=== PATIENT | female | born 1955 | race Two or more races ===

== ENCOUNTER 2023-06-16 17:28 | Inpatient (IN) | payer MEDICAID, OTHER ==
[~2023-06-16] VITALS: Ht 152.4 cm; Wt 96.7 kg
[2023-06-16 21:58] LABS: Basophils # (auto) 0 10 ^3/uL (0-0.2); Basophils % (auto) 0.3 % (0.0-2.0); Eosinophils # (auto) 0 10 ^3/uL (0-0.8); Hematocrit 26.9 % (36.0-46.0); Hemoglobin 8.4 g/dL (12.2-16.2); Lymphocytes # (auto) 1.2 10 ^3/uL (0.4-5.4); Lymphocytes % (auto) 20.2 % (10.0-50.0); Mean Corpuscular Hemoglobin 34.6 pg (28.0-32.0); Mean Corpuscular Hgb Conc. 31.3 g/dL (32.0-36.0); Mean Corpuscular Volume 110.6 fL (80.0-100.0); Monocytes # (auto) 0.9 10 ^3/uL (0-1.3); Monocytes % (auto) 15.8 % (0.0-12.0); Neutrophils # (auto) 3.8 10 ^3/uL (1.6-8.6); Neutrophils % (auto) 63.7 % (37.0-80.0); Nucleated Red Blood Cells % 0.3 %; Red Blood Cells 2.43 10^6/uL (4.0-5.20); White Blood Cell 5.9 10^3/uL (4.4-10.8)
[2023-06-16 21:59] LABS: Albumin 3.4 g/dL (3.2-4.8); Alkaline Phosphatase 74 U/L (46-116); Anion Gap 6.5 (5-15); Aspartate Aminotransferase 20 U/L (13-40); BUN/Creatinine Ratio 21.8 (10.0-20.0); Bilirubin, Total 1.6 mg/dL (0.2-1.0); Blood Urea Nitrogen 12 mg/dL (9-23); Calcium 8.7 mg/dL (8.7-10.4); Carbon Dioxide 25.5 mmol/L (20-30); Chloride 107 mmol/L (98-107); Glucose 137 mg/dL (74-106); Lipase 37 U/L (12-53); Potassium 3.9 mmol/L (3.5-5.1); Sodium 139 mmol/L (136-145); Total Protein 5.6 g/dL (5.7-8.2)
[2023-06-16 22:01] LABS: Alanine Aminotransferase < 9 U/L (7-40)
[2023-06-16 22:23] LABS: INR 0.99 (0.9-1.15); Partial Thromboplastin Time 27.9 SEC (24.5-34.5); Prothrombin Time 10.4 sec (9.3-11.8)
[2023-06-16 22:33] LABS: Anisocytosis Moderate; Platelet Estimate Decreased
[2023-06-16 22:34] LABS: Macrocytosis Moderate
[2023-06-17 04:30] VITALS: PULSE 97; RESP 20; O2SAT 94
[2023-06-17 04:40] LABS: Urine Amorphous Crystal FEW /hpf (None Seen); Urine Bacteria FEW /hpf (None Seen); Urine Blood TRACE /uL (Negative); Urine Clarity HAZY (Clear); Urine Color Yellow (Yellow); Urine Mucus FEW (None Seen); Urine Protein, UAD TRACE (Negative); Urine Specific Gravity 1.027 (1.001-1.035); Urine WBC 25 /hpf (0 - 5); Urine pH 5.5 (5.0-8.0)
[2023-06-17] MEDS ORDERED: FUROSEMIDE 20 MG/2 ML VIAL IV ONE (05:30)
[2023-06-17] MEDS ORDERED: LORazepam 2MG/ML-1ML VIAL IV ONE (05:30)
[2023-06-17] MEDS ORDERED: ACETAMINOPHEN 325 MG TAB PO PRN (06:00)
[2023-06-17] MEDS ORDERED: SODIUM CHLORIDE 0.9% 1,000 ML IV SCH (06:00)
[2023-06-17] MEDS ORDERED: ONDANSETRON HCL 4 MG/2 ML VIAL ONE (06:29)
[2023-06-17] MEDS: ONDANSETRON HCL 4 MG/2 ML VIAL IV PRN (06:29)
[2023-06-17 07:00] LABS: Eosinophils # (auto) 0 10 ^3/uL (0-0.8); Hemoglobin 8.3 g/dL (12.2-16.2); Lymphocytes # (auto) 1.3 10 ^3/uL (0.4-5.4); Mean Corpuscular Hemoglobin 34.3 pg (28.0-32.0); Mean Corpuscular Volume 110.4 fL (80.0-100.0); Monocytes # (auto) 1.1 10 ^3/uL (0-1.3); Neutrophils # (auto) 4.5 10 ^3/uL (1.6-8.6); Red Cell Distribution Width 18.5 % (11.8-14.3); White Blood Cell 6.9 10^3/uL (4.4-10.8)
[2023-06-17] MEDS ORDERED: MORPHINE SULFATE INJ 2 MG/ml SYRG IV PRN (07:00)
[2023-06-17] MEDS ORDERED: NITROGLYCERIN 0.4 MG SL TAB SL PRN (07:00)
[2023-06-17 07:03] LABS: Basophils # (auto) 0.1 10 ^3/uL (0-0.2); Basophils % (auto) 0.7 % (0.0-2.0); Hematocrit 26.7 % (36.0-46.0); Lymphocytes % (auto) 18.7 % (10.0-50.0); Monocytes % (auto) 15.8 % (0.0-12.0); Neutrophils % (auto) 64.8 % (37.0-80.0); Nucleated Red Blood Cells % 0.1 %; Red Blood Cells 2.42 10^6/uL (4.0-5.20)
[2023-06-17 07:06] LABS: Albumin 3.2 g/dL (3.2-4.8); Alkaline Phosphatase 72 U/L (46-116); Anion Gap 5.7 (5-15); Aspartate Aminotransferase 23 U/L (13-40); BUN/Creatinine Ratio 20.3 (10.0-20.0); Bilirubin, Total 1.4 mg/dL (0.2-1.0); Blood Urea Nitrogen 13 mg/dL (9-23); Calcium 8.3 mg/dL (8.7-10.4); Carbon Dioxide 24.3 mmol/L (20-30); Chloride 108 mmol/L (98-107); Glucose 149 mg/dL (74-106); Potassium 3.8 mmol/L (3.5-5.1); Sodium 138 mmol/L (136-145); Total Protein 5.4 g/dL (5.7-8.2)
[2023-06-17 07:07] LABS: Alanine Aminotransferase < 9 U/L (7-40)
[2023-06-17] MEDS: LEVOTHYROXINE SODIUM 25 MCG TAB PO SCH (07:32)
[2023-06-17 08:00] VITALS: PULSE 99; RESP 25; O2SAT 99
[2023-06-17] MEDS ORDERED: FUROSEMIDE 20 MG/2 ML VIAL IV SCH (10:00)
[2023-06-17 10:45] VITALS: BP 105/54; PULSE 94; RESP 18; TEMP 98.2; O2SAT 99
[2023-06-17] MEDS ORDERED: FUROSEMIDE 100 MG/10ML VIAL IV ONE (10:45)
[2023-06-17 13:19] LABS: Base Excess 1.8 mmol/L (-2.0-2.0)
[2023-06-17] MEDS: LORazepam 2MG/ML-1ML VIAL IV PRN (17:08)
[2023-06-17] MEDS: FUROSEMIDE 100 MG/10ML VIAL IV SCH (18:23)
[2023-06-17 19:30] VITALS: PULSE 102; RESP 20; O2SAT 98
[2023-06-17 20:00] VITALS: PULSE 105
[2023-06-17 22:39] VITALS: BP 122/54; PULSE 104; RESP 20; TEMP 98.2; O2SAT 100
[2023-06-18] VITALS (8 sets, daily range): BP systolic 105–132; BP diastolic 37–66; PULSE 54–105; RESP 18–20; TEMP 93.7–98.6; O2SAT 20–99
[2023-06-18] MEDS: FUROSEMIDE 100 MG/10ML VIAL IV SCH ×2 (05:25→18:47)
[2023-06-18 05:28] LABS: Basophils # (auto) 0 10 ^3/uL (0-0.2); Eosinophils # (auto) 0 10 ^3/uL (0-0.8); Lymphocytes # (auto) 1.4 10 ^3/uL (0.4-5.4); Mean Corpuscular Volume 109.4 fL (80.0-100.0)
[2023-06-18 05:41] LABS: Basophils % (auto) 0.2 % (0.0-2.0); Hematocrit 25.7 % (36.0-46.0); Lymphocytes % (auto) 20.8 % (10.0-50.0); Mean Corpuscular Hemoglobin 34.3 pg (28.0-32.0); Mean Corpuscular Hgb Conc. 31.3 g/dL (32.0-36.0); Monocytes # (auto) 1.1 10 ^3/uL (0-1.3); Monocytes % (auto) 15.4 % (0.0-12.0); Neutrophils # (auto) 4.4 10 ^3/uL (1.6-8.6); Neutrophils % (auto) 63.6 % (37.0-80.0); Red Blood Cells 2.35 10^6/uL (4.0-5.20); Red Cell Distribution Width 18.7 % (11.8-14.3); White Blood Cell 6.9 10^3/uL (4.4-10.8)
[2023-06-18 05:46] LABS: Alkaline Phosphatase 70 U/L (46-116); Anion Gap 7.8 (5-15); Aspartate Aminotransferase 21 U/L (13-40); BUN/Creatinine Ratio 15.9 (10.0-20.0); Blood Urea Nitrogen 13 mg/dL (9-23); Calcium 8.1 mg/dL (8.7-10.4); Carbon Dioxide 28.2 mmol/L (20-30); Chloride 103 mmol/L (98-107); Glucose 176 mg/dL (74-106); Sodium 139 mmol/L (136-145)
[2023-06-18 05:47] LABS: Bilirubin, Total 1.4 mg/dL (0.2-1.0)
[2023-06-18] MEDS: LEVOTHYROXINE SODIUM 25 MCG TAB PO SCH (05:55)
[2023-06-18 06:10] LABS: Alanine Aminotransferase < 9 U/L (7-40)
[2023-06-18 06:12] LABS: Potassium 2.9 mmol/L (3.5-5.1)
[2023-06-18] MEDS ORDERED: POTASSIUM CHL 20 Meq TABLET PO ONE (06:15)
[2023-06-18] MEDS: cefTRIAXone 1GM/50ML D5W 50 ML IV SCH (08:48)
[2023-06-18] MEDS: metOLazone 5 MG TAB PO SCH (10:03)
[2023-06-19] VITALS (7 sets, daily range): BP systolic 89–112; BP diastolic 46–64; PULSE 89–96; RESP 17–21; TEMP 97.4–99; O2SAT 90–99
[2023-06-19] MEDS: FUROSEMIDE 100 MG/10ML VIAL IV SCH ×2 (05:17→17:55)
[2023-06-19] MEDS: LEVOTHYROXINE SODIUM 25 MCG TAB PO SCH (06:11)
[2023-06-19] MEDS: cefTRIAXone 1GM/50ML D5W 50 ML IV SCH (08:51)
[2023-06-19] MEDS: POTASSIUM CHL 20 Meq TABLET PO SCH (10:48)
[2023-06-19] MEDS: metOLazone 5 MG TAB PO SCH (11:05)
[2023-06-19 19:49] LABS: Chloride 99 mmol/L (98-107); Sodium 137 mmol/L (136-145)
[2023-06-19 19:50] LABS: Anion Gap 5.5 (5-15); Calcium 8.3 mg/dL (8.5-10.1); Carbon Dioxide 32.5 mmol/L (20-30)
[2023-06-19 19:55] LABS: BUN/Creatinine Ratio 17.6 (10.0-20.0); Blood Urea Nitrogen 15 mg/dL (9-23); Glucose 181 mg/dL (74-106)
[2023-06-19 20:02] LABS: Potassium 2.8 mmol/L (3.5-5.1)
[2023-06-19] MEDS ORDERED: POTASSIUM CHL 20 Meq TABLET PO ONE (21:30)
[2023-06-20] VITALS (8 sets, daily range): BP systolic 95–110; BP diastolic 44–57; PULSE 69–97; RESP 16–18; TEMP 97.7–98.3; O2SAT 94–99
[2023-06-20] MEDS: FUROSEMIDE 100 MG/10ML VIAL IV SCH ×2 (06:00→19:10)
[2023-06-20 06:15] LABS: Anion Gap 7.2 (5-15); Carbon Dioxide 30.8 mmol/L (20-30); Chloride 98 mmol/L (98-107); Potassium 3.2 mmol/L (3.5-5.1); Sodium 136 mmol/L (136-145)
[2023-06-20 06:16] LABS: Calcium 8.2 mg/dL (8.7-10.4)
[2023-06-20] MEDS: LEVOTHYROXINE SODIUM 25 MCG TAB PO SCH (06:18)
[2023-06-20 06:21] LABS: BUN/Creatinine Ratio 17.8 (10.0-20.0); Blood Urea Nitrogen 16 mg/dL (9-23); Glucose 177 mg/dL (74-106)
[2023-06-20] MEDS: cefTRIAXone 1GM/50ML D5W 50 ML IV SCH (08:37)
[2023-06-20 09:14] LABS: Hepatitis B Surface Antigen Negative (Negative)
[2023-06-20 09:35] LABS: Hepatitis C Antibody Negative (Negative)
[2023-06-20] MEDS: POTASSIUM CHL 20 Meq TABLET PO SCH (10:07)
[2023-06-20] MEDS ORDERED: FUROSEMIDE 100 MG/10ML VIAL IV ONE (13:00)
[2023-06-20 15:19] LABS: Folate (Folic Acid) 8.92 ng/mL (>5.38)
[2023-06-21] VITALS (7 sets, daily range): BP systolic 81–108; BP diastolic 42–60; PULSE 91–105; RESP 16–22; TEMP 97.7–98.3; O2SAT 96–99
[2023-06-21] MEDS: FUROSEMIDE 100 MG/10ML VIAL IV SCH ×2 (05:42→17:57)
[2023-06-21] MEDS: LEVOTHYROXINE SODIUM 25 MCG TAB PO SCH (05:58)
[2023-06-21 06:17] LABS: Chloride 94 mmol/L (98-107); Sodium 135 mmol/L (136-145)
[2023-06-21 06:18] LABS: Calcium 8.4 mg/dL (8.5-10.1)
[2023-06-21 06:23] LABS: BUN/Creatinine Ratio 21.6 (10.0-20.0); Blood Urea Nitrogen 22 mg/dL (9-23); Glucose 188 mg/dL (74-106)
[2023-06-21 06:40] LABS: Potassium 2.7 mmol/L (3.5-5.1)
[2023-06-21 06:44] LABS: Red Cell Distribution Width 17.2 % (11.8-14.3); White Blood Cell 8.6 10^3/uL (4.4-10.8)
[2023-06-21 06:48] LABS: Hematocrit 25.4 % (36.0-46.0); Hemoglobin 8.4 g/dL (12.2-16.2); Mean Corpuscular Hemoglobin 34.7 pg (28.0-32.0); Red Blood Cells 2.42 10^6/uL (4.0-5.20)
[2023-06-21 06:55] LABS: Band Neutrophils % (manual) 0; Basophils % (manual) 0 (0.0-2.0); Blast Cells 0; Eosinophils % (manual) 0 (0-7); Metamyelocytes % 0; Myelocytes % 0; Promyelocytes % 0; Reactive Lymphocytes 0
[2023-06-21 06:56] LABS: Anion Gap 6.9 (5-15); Carbon Dioxide 34.1 mmol/L (20-30)
[2023-06-21] MEDS ORDERED: POTASSIUM CHL 20 Meq TABLET PO ONE (07:00)
[2023-06-21] MEDS ORDERED: POTASSIUM EFFERVESENT TAB 25 MEQ PO ONE ×2 (10:00→16:00)
[2023-06-21 10:55] LABS: Lymphocytes % (manual) 20 (10.0-50.0); Monocytes % (manual) 15 (0-12); Platelet Estimate Decreased
[2023-06-21] MEDS: cefTRIAXone 1GM/50ML D5W 50 ML IV SCH (11:02)
[2023-06-21] MEDS: POTASSIUM CHL 20 Meq TABLET PO SCH (11:03)
[2023-06-21] MEDS: HYDROcodone-ACET 5/325MG TAB PO PRN ×3 (11:03→23:32)
[2023-06-21 11:57] LABS: % Iron Saturation 21.9 % (15-50)
[2023-06-21 12:44] LABS: Ferritin 387.9 ng/mL (10-291)
[2023-06-21 12:54] LABS: Erythrocyte Sedimentation Rate 90 mm/hr (0-20)
[2023-06-21 13:09] LABS: Free T3 1.77 pg/mL (2.3-4.2); Free T4 (Free Thyroxine) 0.79 ng/dL (0.89-1.76)
[2023-06-21 14:54] LABS: Body Fluid Polymorphonuclear 16 % (0-25); Body Fluid Red Blood Cells 43 CUMM (0-2000); Body Fluid White Blood Cells 690 CUMM (0-200)
[2023-06-21] MEDS: LEVOTHYROXINE SODIUM 50 MCG TAB PO SCH (17:49)
[2023-06-21] MEDS: DOCUSATE SOD 100 MG CAP PO PRN (17:53)
[2023-06-21] MEDS: ONDANSETRON HCL 4 MG/2 ML VIAL IV PRN (18:33)
[2023-06-22] VITALS (7 sets, daily range): BP systolic 100–115; BP diastolic 49–59; PULSE 89–98; RESP 17–23; TEMP 97.5–98.4; O2SAT 95–99
[2023-06-22] MEDS: FUROSEMIDE 100 MG/10ML VIAL IV SCH ×2 (05:01→17:45)
[2023-06-22] MEDS: LEVOTHYROXINE SODIUM 50 MCG TAB PO SCH (06:03)
[2023-06-22 06:59] LABS: Red Cell Distribution Width 17.2 % (11.8-14.3); White Blood Cell 8.9 10^3/uL (4.4-10.8)
[2023-06-22 07:00] LABS: Hematocrit 25.1 % (36.0-46.0); Hemoglobin 8.2 g/dL (12.2-16.2); Mean Corpuscular Hemoglobin 34.5 pg (28.0-32.0); Mean Corpuscular Hgb Conc. 32.9 g/dL (32.0-36.0); Mean Corpuscular Volume 104.7 fL (80.0-100.0); Red Blood Cells 2.39 10^6/uL (4.0-5.20)
[2023-06-22] MEDS ORDERED: LEVOTHYROXINE SODIUM 50 MCG TAB PO SCH (07:00)
[2023-06-22 07:10] LABS: Chloride 93 mmol/L (98-107); Potassium 3.2 mmol/L (3.5-5.1); Sodium 133 mmol/L (136-145)
[2023-06-22 07:11] LABS: Anion Gap 3.9 (5-15); Carbon Dioxide 36.1 mmol/L (20-30)
[2023-06-22 07:12] LABS: Band Neutrophils % (manual) 0; Basophils % (manual) 0 (0.0-2.0); Blast Cells 0; Calcium 8.3 mg/dL (8.5-10.1); Eosinophils % (manual) 0 (0-7); Metamyelocytes % 0; Myelocytes % 0; Promyelocytes % 0; Reactive Lymphocytes 0
[2023-06-22 07:16] LABS: BUN/Creatinine Ratio 24.2 (10.0-20.0); Blood Urea Nitrogen 30 mg/dL (9-23); Glucose 210 mg/dL (74-106)
[2023-06-22 07:17] LABS: Magnesium 1.4 mg/dL (1.6-2.6)
[2023-06-22 07:55] LABS: Lymphocytes % (manual) 14 (10.0-50.0); Monocytes % (manual) 16 (0-12); Platelet Estimate Decreased
[2023-06-22 07:56] LABS: Hypochromia Slight; Macrocytosis Slight; Stomatocytes Moderate
[2023-06-22 08:07] LABS: Thyroxine (T4) 5.4 ug/dL (4.5-12.0)
[2023-06-22] MEDS ORDERED: MAGNESIUM SULFATE 1GM/100ML 100 ML IV ONE (08:15)
[2023-06-22] MEDS ORDERED: POTASSIUM EFFERVESENT TAB 25 MEQ PO ONE (08:15)
[2023-06-22] MEDS: HYDROcodone-ACET 5/325MG TAB PO PRN (08:34)
[2023-06-22] MEDS ORDERED: POTASSIUM CHL 20 Meq TABLET PO ONE (09:00)
[2023-06-22] MEDS: cefTRIAXone 1GM/50ML D5W 50 ML IV SCH (09:03)
[2023-06-22] MEDS: POTASSIUM CHL 20 Meq TABLET PO SCH (09:04)
[2023-06-22] MEDS: DOCUSATE SOD 100 MG CAP PO PRN (09:04)
[2023-06-22 09:07] LABS: Anti-Nuclear Antibody Direct Positive (Negative); Anti-dsDNA Antibody 1 IU/mL (0-9); RNP Antibody <0.2 AI (0.0-0.9); Sjogren's Anti-SS-A Antibody 2.7 AI (0.0-0.9); Sjogren's Anti-SS-B Antibody <0.2 AI (0.0-0.9); Smith Antibody <0.2 AI (0.0-0.9)
[2023-06-22 11:02] LABS: Albumin 2.9 g/dL (3.2-4.8); Alkaline Phosphatase 66 U/L (46-116); Aspartate Aminotransferase 15 U/L (13-40); Bilirubin, Direct 0.4 mg/dL (<0.3)
[2023-06-22 11:03] LABS: Bilirubin, Total 1.1 mg/dL (0.2-1.0)
[2023-06-22 11:07] LABS: Alanine Aminotransferase < 9 U/L (7-40)
[2023-06-22 12:07] LABS: CA 27.29 19.9 U/mL (0.0-38.6)
[2023-06-22 14:07] LABS: Protein, Body Fluid 2.9 g/dL (.)
[2023-06-22 14:07] LABS: Albumin 2.4 g/dL (2.9-4.4); Alpha-1-Globulin 0.3 g/dL (0.0-0.4); Alpha-2-Globulin 0.5 g/dL (0.4-1.0); Gamma Globulin 0.6 g/dL (0.4-1.8); Globulin Total 2.2 g/dL (2.2-3.9); Protein Total Serum 4.6 g/dL (6.0-8.5)
[2023-06-23] VITALS (7 sets, daily range): BP systolic 105–114; BP diastolic 48–60; PULSE 76–102; RESP 16–23; TEMP 97.7–98.5; O2SAT 97–100
[2023-06-23] MEDS: LORazepam 2MG/ML-1ML VIAL IV PRN ×2 (04:43→21:24)
[2023-06-23] MEDS: FUROSEMIDE 100 MG/10ML VIAL IV SCH ×2 (05:34→17:44)
[2023-06-23] MEDS: LEVOTHYROXINE SODIUM 50 MCG TAB PO SCH (06:26)
[2023-06-23 06:55] LABS: Basophils # (auto) 0 10 ^3/uL (0-0.2); Eosinophils # (auto) 0 10 ^3/uL (0-0.8); Nucleated Red Blood Cells % 0.1 %; White Blood Cell 10.4 10^3/uL (4.4-10.8)
[2023-06-23 07:23] LABS: Basophils % (auto) 0.4 % (0.0-2.0); Hematocrit 24.1 % (36.0-46.0); Lymphocytes # (auto) 1.9 10 ^3/uL (0.4-5.4); Lymphocytes % (auto) 18.6 % (10.0-50.0); Mean Corpuscular Hemoglobin 35.1 pg (28.0-32.0); Mean Corpuscular Hgb Conc. 33.4 g/dL (32.0-36.0); Monocytes # (auto) 1.6 10 ^3/uL (0-1.3); Monocytes % (auto) 15.7 % (0.0-12.0); Neutrophils # (auto) 6.8 10 ^3/uL (1.6-8.6); Neutrophils % (auto) 65.3 % (37.0-80.0); Red Blood Cells 2.29 10^6/uL (4.0-5.20); Red Cell Distribution Width 17.2 % (11.8-14.3)
[2023-06-23 07:53] LABS: Anion Gap 5 (5-15); Carbon Dioxide 36 mmol/L (20-30); Chloride 90 mmol/L (98-107); Potassium 3.6 mmol/L (3.5-5.1); Sodium 131 mmol/L (136-145)
[2023-06-23 07:54] LABS: Calcium 8.5 mg/dL (8.5-10.1)
[2023-06-23 07:59] LABS: BUN/Creatinine Ratio 27.2 (10.0-20.0); Blood Urea Nitrogen 34 mg/dL (9-23); Glucose 230 mg/dL (74-106); Magnesium 1.6 mg/dL (1.6-2.6)
[2023-06-23] MEDS ORDERED: MAGNESIUM OXIDE 400 MG TAB PO ONE (09:00)
[2023-06-23] MEDS: cefTRIAXone 1GM/50ML D5W 50 ML IV SCH (09:52)
[2023-06-23] MEDS: POTASSIUM CHL 20 Meq TABLET PO SCH (09:54)
[2023-06-23] MEDS: HYDROcodone-ACET 5/325MG TAB PO PRN ×3 (09:55→23:48)
[2023-06-23] MEDS ORDERED: ENOXAPARIN SOD 40 MG/0.4 ML SYRINGE SC SCH (10:00)
[2023-06-23 17:45] LABS: Hepatitis A Total Antibody Positive (Negative); Hepatitis B Surface Antibody Negative (Negative); Hepatitis B Surface Antigen Negative (Negative); Hepatitis C Antibody Negative (Negative)
[2023-06-23 17:57] LABS: Hepatitis B Core Total AB Positive (Negative)
[2023-06-23 18:06] LABS: CCP IgG/IgA Antibody 0 units (0-19)
[2023-06-23] MEDS: DOCUSATE SOD 100 MG CAP PO PRN (21:24)
[2023-06-24] MEDS ORDERED: MELATONIN 5 MG TAB PO ONE (00:45)
[2023-06-24 05:00] VITALS: BP 122/61; PULSE 98; RESP 18; TEMP 97.8; O2SAT 96
[2023-06-24] MEDS: HYDROcodone-ACET 5/325MG TAB PO PRN (06:02)
[2023-06-24] MEDS: FUROSEMIDE 100 MG/10ML VIAL IV SCH (06:02)
[2023-06-24] MEDS: LEVOTHYROXINE SODIUM 50 MCG TAB PO SCH (06:03)
[2023-06-24 06:07] LABS: Chloride 89 mmol/L (98-107); Potassium 4.6 mmol/L (3.5-5.1); Sodium 128 mmol/L (136-145)
[2023-06-24 06:08] LABS: Anion Gap 3 (5-15); Carbon Dioxide 36 mmol/L (20-30)
[2023-06-24 06:09] LABS: Calcium 8.4 mg/dL (8.7-10.4)
[2023-06-24 06:13] LABS: Glucose 255 mg/dL (74-106)
[2023-06-24 06:14] LABS: BUN/Creatinine Ratio 29.6 (10.0-20.0); Blood Urea Nitrogen 42 mg/dL (9-23); Magnesium 1.8 mg/dL (1.6-2.6)
[2023-06-24 07:06] LABS: Immunoglobulin A 138 mg/dL (87-352); Immunoglobulin G, Serum 476 mg/dL (586-1602); Immunoglobulin M 161 mg/dL (26-217)
[2023-06-24 07:42] LABS: Basophils # (auto) 0 10 ^3/uL (0-0.2); Eosinophils # (auto) 0 10 ^3/uL (0-0.8); Hemoglobin 7.5 g/dL (12.2-16.2); Monocytes # (auto) 1.5 10 ^3/uL (0-1.3)
[2023-06-24 07:45] LABS: Basophils % (auto) 0.3 % (0.0-2.0); Hematocrit 22.9 % (36.0-46.0); Lymphocytes % (auto) 15.1 % (10.0-50.0); Mean Corpuscular Hemoglobin 34.2 pg (28.0-32.0); Mean Corpuscular Hgb Conc. 32.7 g/dL (32.0-36.0); Mean Corpuscular Volume 104.8 fL (80.0-100.0); Monocytes % (auto) 11.8 % (0.0-12.0); Neutrophils # (auto) 9.4 10 ^3/uL (1.6-8.6); Neutrophils % (auto) 72.8 % (37.0-80.0); Red Blood Cells 2.18 10^6/uL (4.0-5.20); Red Cell Distribution Width 17.6 % (11.8-14.3)
[2023-06-24 08:00] VITALS: PULSE 86; PULSE 91; RESP 16; O2SAT 95
[2023-06-24 08:38] VITALS: BP 108/34; PULSE 91; RESP 16; TEMP 98.1; O2SAT 95
[2023-06-24] MEDS ORDERED: CEPH250C PO (09:53)
[2023-06-24] MEDS ORDERED: DOCU-94 PO (09:53)
[2023-06-24] MEDS ORDERED: LEVO75TA6 PO (09:53)
[2023-06-24] MEDS ORDERED: FURO1TAB31 PO (09:53)
[2023-06-24 10:13] VITALS: BP 122/61; TEMP 36.7
[2023-06-24] MEDS: POTASSIUM CHL 20 Meq TABLET PO SCH (10:13)
[2023-06-24] MEDS: DOCUSATE SOD 100 MG CAP PO PRN (10:14)
[2023-06-24] MEDS: cefTRIAXone 1GM/50ML D5W 50 ML IV SCH (10:20)
[2023-06-24 13:06] LABS: Kappa Lite Chain Free Serum 44.9 mg/L (3.3-19.4)
[2023-06-24] MEDS: LIDOCAINE 2% JELLY 11ml (GLYDO) UR ONE ×2 (13:38→13:45)
[2023-06-24] MEDS: LORazepam 2MG/ML-1ML VIAL IV PRN (13:48)
[2023-06-24] MEDS ORDERED: FUROSEMIDE 100 MG/10ML VIAL IV SCH (18:00)
== END 2023-06-24 14:50 | disposition hospice, home (50) | DRG 133 ==
LOC: ER 17:28 → TELE 06-17 06:55 → TELE-WESTW 06-17 22:03
PROVIDERS: ADMIT Internal Medicine; ATTEND Student in an Organized Health Care Education/Training Program
PROC: 5A09357 Assistance with Respiratory Ventilation, Less than 24 Consecutive Hours, Continuous Positive Airway Pressure (ICD-10-PCS; principal; 2023-06-17)
PROC: 0W993ZZ Drainage of Right Pleural Cavity, Percutaneous Approach (ICD-10-PCS; 2023-06-21)
PROC: 0W9B3ZZ Drainage of Left Pleural Cavity, Percutaneous Approach (ICD-10-PCS; 2023-06-23)
DX: J96.01 Acute respiratory failure with hypoxia (principal); D69.6 Thrombocytopenia, unspecified; J81.1 Chronic pulmonary edema; E46 Unspecified protein-calorie malnutrition; E88.09 Other disorders of plasma-protein metabolism, not elsewhere classified; J90 Pleural effusion, not elsewhere classified; E87.6 Hypokalemia; E66.01 Morbid (severe) obesity due to excess calories; Z68.41 Body mass index [BMI] 40.0-44.9, adult; D53.9 Nutritional anemia, unspecified; N39.0 Urinary tract infection, site not specified; E83.42 Hypomagnesemia; E03.9 Hypothyroidism, unspecified; Z80.3 Family history of malignant neoplasm of breast; Z85.3 Personal history of malignant neoplasm of breast; Z88.6 Allergy status to analgesic agent; Z90.711 Acquired absence of uterus with remaining cervical stump
CPT/HCPCS: 36415; 36600; 71045; 71260; 74177; 76604; 76881; 76942; 80048; 80053; 80076; 81001; 82270; 82595; 82607; 82728; 82746; 82784; 82805; 83540; 83550; 83615; 83690; 83735; 83880; 83883; 83986; 84155; 84165; 84436; 84439; 84443; 84481; 84484; 85007; 85025; 85027; 85045; 85610; 85652; 85730; 86038; 86200; 86300; 86334; 86704; 86706; 86708; 86803; 86850; 86870; 86880; 86900; 86901; 86905; 86906; 86971; 87205; 87340; 89051; 93306; 93970; 94660; 97110; 97116; 97163; 97530; G0378; J0696; J2405